=== PATIENT | male | born 1955 | race Caucasian/White ===

== ENCOUNTER 2023-11-17 06:28 | Outpatient (RCR) | payer MEDICARE, SELFPAY | END 2023-11-17 23:59 | disposition home or self-care (01) | LOC: RPT 06:28 | PROVIDERS: ATTENDING PHYSICIAN Physician Assistant Surgical; PRIMARYCARE PHYSICIAN Family Medicine | DX: Z47.1 Aftercare following joint replacement surgery (principal); Z96.641 Presence of right artificial hip joint; M89.8X9 Other specified disorders of bone, unspecified site; M54.51 Vertebrogenic low back pain; Z73.6 Limitation of activities due to disability | CPT/HCPCS: 97010; 97110; 97164 ==

== ENCOUNTER 2023-12-18 10:48 | Outpatient (RCR) | payer MEDICARE, SELFPAY | END 2023-12-18 23:59 | disposition home or self-care (01) | LOC: RPT 10:48 | PROVIDERS: ATTENDING PHYSICIAN Physician Assistant Surgical; PRIMARYCARE PHYSICIAN Family Medicine | DX: Z47.1 Aftercare following joint replacement surgery (principal); Z96.641 Presence of right artificial hip joint; M89.8X9 Other specified disorders of bone, unspecified site; M54.51 Vertebrogenic low back pain; Z73.6 Limitation of activities due to disability | CPT/HCPCS: 97010; 97110; 97140 ==

== ENCOUNTER → 2024-03-01 07:41 | Outpatient (REF) | payer MEDICARE, SELFPAY | LOC: PAVMRI 07:41 | PROVIDERS: ATTENDING PHYSICIAN Specialist; FAMILY PHYSICIAN Family Medicine; REFERRING PHYSICIAN Orthopaedic Surgery | DX: G95.9 Disease of spinal cord, unspecified (principal) | CPT/HCPCS: 72157; A9575 ==

== ENCOUNTER → 2024-04-02 12:33 | Outpatient (REF) | payer MEDICARE, SELFPAY ==
[2024-04-02 14:39] LABS: HDL Cholesterol 48 mg/dl; LDL Cholesterol, Calculated 54 mg/dl; Total Cholesterol 142 mg/dl (50-199); Triglyceride 202 mg/dl (10-149); Very Low Density Lipoprotein 40 mg/dl (0-30)
[2024-04-02 14:41] LABS: ALT (SGPT) 20 U/L (0-50); AST (SGOT) 28 U/L (17-59); Albumin 4.5 g/dl (3.5-5.0); Alkaline Phosphatase 105 U/L (38-126); Blood Urea Nitrogen 16 mg/dl (9-20); Calcium 9.8 mg/dl (8.4-10.2); Carbon Dioxide 22 mmol/L (22-30); Chloride 105 mmol/L (98-107); Glucose 102 mg/dl (70-99); HDL Cholesterol 49 mg/dl; LDL Cholesterol, Calculated 52 mg/dl; Potassium 4.4 mmol/L (3.5-5.1); Sodium 137 mmol/L (135-145); Total Bilirubin 0.7 mg/dl (0.2-1.3); Total Cholesterol 141 mg/dl (50-199); Total Protein 7.1 g/dl (6.3-8.2); Triglyceride 203 mg/dl (10-149); Very Low Density Lipoprotein 40 mg/dl (0-30); eGFR > 60.00
== END ==
LOC: RCS 12:33
PROVIDERS: ATTENDING PHYSICIAN Internal Medicine; FAMILY PHYSICIAN Family Medicine
DX: I25.10 Atherosclerotic heart disease of native coronary artery without angina pectoris (principal); I10 Essential (primary) hypertension; I77.810 Thoracic aortic ectasia; I25.5 Ischemic cardiomyopathy; E78.5 Hyperlipidemia, unspecified
CPT/HCPCS: 36415; 80053; 80061; 93306

== ENCOUNTER → 2024-04-24 10:16 | Outpatient (REF) | payer MEDICARE, SELFPAY | LOC: RAD 10:16 | PROVIDERS: ATTENDING PHYSICIAN Surgery Vascular Surgery; FAMILY PHYSICIAN Family Medicine; REFERRING PHYSICIAN Internal Medicine | DX: I71.40 Abdominal aortic aneurysm, without rupture, unspecified (principal) | CPT/HCPCS: 76770 ==

== ENCOUNTER → 2024-05-01 09:12 | Outpatient (REF) | payer MEDICARE, SELFPAY | LOC: HWRAD 09:12 | PROVIDERS: ATTENDING PHYSICIAN Surgery Vascular Surgery; FAMILY PHYSICIAN Family Medicine; REFERRING PHYSICIAN Physical Medicine & Rehabilitation | DX: I71.40 Abdominal aortic aneurysm, without rupture, unspecified (principal) | CPT/HCPCS: 75635; Q9967 ==

== ENCOUNTER 2024-06-17 07:13 | Inpatient (IN) | payer MEDICARE, SELFPAY ==
[2024-06-13 09:23] VITALS: BMI 31.8
[2024-06-13 10:05] LABS: % Basophils 1.1 % (0-2); % Eosinophils 4.1 % (0-6); % Immature Granulocytes 0.3 % (0-0.5); % Lymphocytes 14.7 % (20.5-51.1); % Monocytes 9.2 % (1.7-9.3); % Neutrophils 70.6 % (42.2-75.2); Absolute Basophils 0.1 10^3/uL (0-0.2); Absolute Eosinophils 0.3 10^3/uL (0-0.7); Absolute Lymphocytes 0.9 10^3/uL (1.2-3.4); Absolute Monocytes 0.6 10^3/uL (0.1-0.6); Absolute Neutrophils 4.4 10^3/uL (1.4-6.5); Hematocrit 43.9 % (39.0-52.0); Hemoglobin 15.1 g/dL (13.0-18.0); Mean Corp Hgb Conc. 34.4 g/dL (33.0-37.0); Mean Corpuscular Hgb 30.7 pg (27.0-31.0); Mean Corpuscular Volume 89.2 fL (80.0-94.0); Mean Platelet Volume 9.5 fL (7.4-10.4); Nucleated Red Blood Cells % 0 % (-); Platelet Count 213 10^3/uL (130-400); Red Blood Cell Count 4.92 10^6/uL (4.70-6.10); Red Cell Dist. Width 13.8 % (11.5-14.5); White Blood Cell Count 6.2 10^3/uL (4.8-10.8)
[2024-06-13 10:16] LABS: APTT 30.7 Sec (23.4-35.0); INR 0.93; PT 12.4 Sec (11.4-14.6)
[2024-06-13 10:26] LABS: Blood Urea Nitrogen 20 mg/dl (9-20); Calcium 9.8 mg/dl (8.4-10.2); Carbon Dioxide 26 mmol/L (22-30); Chloride 102 mmol/L (98-107); Estimated Creatinine Clearance 104 ml/min; Glucose 104 mg/dl (70-99); Potassium 4.4 mmol/L (3.5-5.1); Sodium 140 mmol/L (135-145); eGFR > 60.00
[2024-06-17] VITALS (15 sets, daily range): BP systolic 91–149; BP diastolic 65–84; BMI 31.7; BMI 31.1
[2024-06-17] MEDS: BACTROBAN NASAL 1 GRAM NASAL (08:24)
[2024-06-17] MEDS: PERIDEX 0.12% ORAL RINSE 15 ML PO (08:25)
--- NOTE | 2024-06-17 09:08 | W.SUR.PREOP ---
Pre-Operative Surgical Note
-
I have examined this patient prior to the performance of the scheduled procedure.
The patient's condition is unchanged from the time of the current History and
Physical and the patient is able to undergo the scheduled procedure.
[2024-06-17 11:27] LABS: B.E. - POC -2.4 mmol/L; Glucose - POC 140 mg/dl (70-99); HCO3 - POC 23 mmol/L (21-29); Hematocrit - POC 39 % PCV (42-52); Hemodilution- POC No; Hemoglobin Calculated - POC 13.2; Lactate - POC 1.18 mmol/L (0.36-0.75); PCO2 - POC 41 mmHg (35-45); PO2 - POC 94 mmHg (80-100); Potassium - POC 4.8 mmol/L (3.6-5.0); Sodium - POC 140 mmol/L (135-145); pH - POC 7.36 (7.35-7.45)
[2024-06-17 13:33] LABS: B.E. - POC -3.9 mmol/L; Glucose - POC 167 mg/dl (70-99); HCO3 - POC 22 mmol/L (21-28); Hematocrit - POC 37 % PCV (42-52); Hemodilution- POC Yes; Hemoglobin Calculated - POC 12.7; Ionized Calcium - POC 1.15 mmol/L (1.15-1.33); Lactate - POC 1.42 mmol/L (0.36-0.75); O2 Saturation %Calculated-POC 98.2 % (94-98); PCO2 - POC 40 mmHg (35-48); PO2 - POC 115 mmHg (83-108); Potassium - POC 4.6 mmol/L (3.5-5.1); Sodium - POC 139 mmol/L (136-145); pH - POC 7.34 (7.35-7.45)
[2024-06-17 14:33] LABS: ACT-LR - POC 221 Seconds (116-155)
[2024-06-17 14:46] LABS: B.E. - POC -3.9 mmol/L; Glucose - POC 166 mg/dl (70-99); HCO3 - POC 21 mmol/L (21-28); Hematocrit - POC 34 % PCV (42-52); Hemodilution- POC Yes; Hemoglobin Calculated - POC 11.6; Ionized Calcium - POC 1.09 mmol/L (1.15-1.33); Lactate - POC 1.95 mmol/L (0.36-0.75); PCO2 - POC 39 mmHg (35-48); PO2 - POC 140 mmHg (83-108); Potassium - POC 4.3 mmol/L (3.5-5.1); Sodium - POC 141 mmol/L (136-145); pH - POC 7.35 (7.35-7.45)
--- NOTE | 2024-06-17 15:23 | W.SUR.POST ---
Surgical Immediate Post Op
Note
Pre Op Diagnosis: AAA
Post Op Diagnosis: AAA
Procedure Performed: [id number] bypass with excision of endograft
Primary Surgeon: Zeferino
Assist: Checo CASTILLO
Anesthesia: General
Estimated Blood Loss: 800cc
Fluids: See anesthesia flow sheet
Drains/Shunts: none
Specimens/Cultures: Aortic endograft
Doppler/Duplex/Angio (Y/N): Y
Complications: none
Operative Findings: palp PT BL
[2024-06-17] MEDS: NEO-SYNEPHRINE 250 IV (16:35)
[2024-06-17 16:55] LABS: Hematocrit 37.7 % (39.0-52.0); Hemoglobin 13.2 g/dL (13.0-18.0); Mean Corpuscular Hgb 29.9 pg (27.0-31.0); Mean Corpuscular Volume 85.5 fL (80.0-94.0); Mean Platelet Volume 9.2 fL (7.4-10.4); Platelet Count 175 10^3/uL (130-400); Red Blood Cell Count 4.41 10^6/uL (4.70-6.10); Red Cell Dist. Width 13.6 % (11.5-14.5); White Blood Cell Count 12.2 10^3/uL (4.8-10.8)
[2024-06-17] MEDS: DILAUDID PCA 30 IV (16:57)
[2024-06-17 17:06] LABS: INR 1.13; PT 14.3 Sec (11.4-14.6)
[2024-06-17 17:07] LABS: APTT 27.5 Sec (23.4-35.0)
[2024-06-17 17:15] LABS: ALT (SGPT) 20 U/L (0-50); AST (SGOT) 24 U/L (17-59); Albumin 3.3 g/dl (3.5-5.0); Alkaline Phosphatase 76 U/L (38-126); Blood Urea Nitrogen 18 mg/dl (9-20); Calcium 7.8 mg/dl (8.4-10.2); Carbon Dioxide 19 mmol/L (22-30); Chloride 109 mmol/L (98-107); Direct Bilirubin 0.2 mg/dl (0.0-0.4); Estimated Creatinine Clearance 94 ml/min; Glucose 147 mg/dl (70-99); Potassium 4.4 mmol/L (3.5-5.1); Sodium 141 mmol/L (135-145); Total Bilirubin 0.6 mg/dl (0.2-1.3); Total Protein 5.6 g/dl (6.3-8.2); eGFR > 60.00
[2024-06-17 17:18] LABS: Troponin I < 0.012 ng/ml
--- NOTE | 2024-06-17 17:32 | CON.INTV ---
Consultation
Consultation Request
Date/Time Consultation Requested: 06/17
Date/Time Consultation Performed: 06/17
Reason for Consultation: Critical care
Medical History
-
History of Present Illness:
History obtained from the chart. Patient is a 68-year-old male with complex medical history including abdominal aortic aneurysm without rupture. He had recent imaging in April which confirmed right limb of his aortic endograft was occluded.
This has progressed. Patient also with ongoing claudication over the past 10 months. Patient underwent aorto-biiliac bypass with excision of endograft 06/17/2024. 800 cc blood loss noted. Palpable PT bilaterally postprocedure. We are asked to
help from critical care standpoint. Patient is awake and alert. Moving all extremities, answering questions.
.
PMH: Hypertension, hyperlipidemia, history of CHF, coronary disease, peripheral arterial disease, total hip replacement, coronary stent 2000, 2005. Status post EVAR October 2021, bilateral iliofemoral thrombectomy, right total hip replacement, lumbar
surgery
Past Medical History
Past Medical History: None (See above)
Past Surgical History: None (See above)
Social History
Tobacco: Former Smoker ([id number], quit 2015)
Alcohol: Occasional
Drug: None
Personal:
Living: With Family
Employment: Employed (Owns a restaurant)
Family History
Family History: Other (Family history of sleep apnea, heart disease, diabetes. 1 son healthy.)
Allergies / Home Medications
Allergies
Allergy/AdvReac Type Severity Reaction Status Date / Time
No Known Allergies Allergy Verified 06/17/24 09:22
Home Medications
�Medication �Instructions �Recorded �Confirmed �Last Taken �Type
aspirin 81 mg tablet,delayed 81 mg PO DAILY Blood clot 10/04/21 06/17/24 06/17/24 06:30 History
release prevention/tx
metoprolol succinate 50 mg 50 mg PO DAILY Blood pressure 11/12/21 06/17/24 06/17/24 06:30 History
tablet,extended release 24 hr
amlodipine 10 mg tablet 10 mg PO DAILY 06/11/24 06/17/24 06/17/24 06:30 History
escitalopram oxalate 20 mg tablet 20 mg PO DAILY 06/11/24 06/17/24 06/16/24 09:00 History
oxycodone-acetaminophen 7.5 mg-325 1 tab PO Q6H PRN pain 06/11/24 06/17/24 06/17/24 06:30 History
mg tablet
rosuvastatin 40 mg tablet 40 mg PO DAILY 06/17/24 06/17/24 06/16/24 09:00 History
Review of Systems
-
Unable to Obtain full review of systems at this time due to: Acuity
All other systems: Negative unless noted
Vitals / Labs / Diagnostic Testing
Vital Signs
Temp Pulse Resp BP Pulse Ox
97.9 F 61 13 101/72 98
06/17/24 17:20 06/17/24 17:15 06/17/24 17:15 06/17/24 17:15 06/17/24 17:20
Lab Data
06/17/24 16:36
06/17/24 16:37
Laboratory Results
06/17/24
16:37
PT 14.3
INR 1.13
APTT 27.5
Diagnostic Testing:
Physical Exam
-
HEENT: Normocephalic, Anicteric and Other ( Right IJ, Upper extremity)
Cardiovascular: S1/S2, Regular Rhythm, Murmur (n), Rub (n), Peripheral Edema (n) and Other ( PT dopplerable pulses bilateral lower extremity per report)
Respiratory: Wheeze (n), Rales (n), Rhonchi (n) and Non-Labored Respirations
GI: Soft, Non Distended, Non Tender and Other ( abdominal incision with dressing)
Neurology: Awake, Alert and No Motor Deficits ( was all extremities, follows commands)
Skin: Good Color
General: Comfortable
Assessment
-
68-year-old male with history of EVAR October 2021, now with progressive claudication, increased symptoms over the last 10 months, found to have occluded bypass limb secondary to persistent mural thrombus. He is now status post an aortobiiliac bypass
with excision of endograft 06/17/24
S/p Aortic biiliac bypass, excision of endograft
06/17/24
History of AAA s/p EVAR, Cook Zenith endoprosthesis 11/01/21
with mural thrombus, occlusion, progressive claudication for past year
800 cc blood loss intraoperative
Postoperative hemoglobin 13.2
Conditions present prior to admission
CAD
CHF
Former smoker, >40 years, quit 2015
HTN
HLD
Varicose veins
Plan/recommendations
Presently, patient appears to be comfortable
Pulse is dopplerable bilaterally PT
Extremities adequate
Abdominal incision intact, abdomen soft
Cranial nerves intact, moves all extremities
EKG, chest x-ray stable
800 cc blood loss noted
Moving forward
Patient appears to be comfortable, continue with supportive care per vascular surgery
Follow hemoglobin, urine output
Pain control, TOP LIFT SCOURER
Pulse check per vascular protocol
Reviewed with critical care nursing
We will follow
TCCT 31 min
[2024-06-17] MEDS: LOPRESSOR IV ×2 (18:02→23:48)
[2024-06-17] MEDS: OFIRMEV 100 IV ×2 (18:10→23:11)
[2024-06-17] MEDS: NSS 1000 IV ×2 (18:11→23:09)
--- NOTE | 2024-06-17 18:36 | PTCARENOTE ---
Addendum entered by Olga Acosta RN 06/17/24 19:03:
able to locate pedal pulses bilaterally with doppler. feet warmer. report to oncoming RN
Original Note:
patient received from PACU@1358. assessments per work list. jono titration to keep systolic >100. unable to locate pedal pulses. post tib's by Doppler. per RUBY ON RAILS DEVELOPER this assessment is unchanged from the OR. welt butter hand at bedside. orientedX3,
abdominal pain, utilizing MACHINING ASSOCIATE, reenforced usage. Pope draining clear yellow urine. call nolasco in hand. family at bedside. updated
[2024-06-17 19:12] LABS: Hepatitis B Surface Antigen Negative (Negative)
[2024-06-17 19:29] LABS: Hepatitis B Surface Antibody Negative; Hepatitis C Antibody Negative (Negative)
--- NOTE | 2024-06-17 19:40 | PTCARENOTE ---
Resumed care of pt this evening. Received pt on jono gtt infusing at 30 mcg/min via right IJ cordis central line. Also received pt on Dilaudid MATERIAL DISPOSITION INSPECTOR gtt infusing via left peripheral IV site. Pt is drowsy but arousable to verbal and tactile stimuli.
Neurovascular checks performed w/ dayshift RN. B/L DP and PT pulses present via doppler, previously DP's were absent. Pt denies any numbness, paresthesia, and/or pain to B/L lower extremities. Pt's feet are pale, warm, with quick capillary refill.
Pt is A&Ox3, able to move all 4 extremities, and can make needs known. Pt is NSR/SB on tele monitor and has a regular apical pulse. Pt has trace edema on B/L lower extremities. Simple mask removed and 2L of O2 via nasal cannula placed by this RN. Pt
satting at 95% pulse ox and on auscultation pt's lungs sound diminished. NPO status maintained. Pt's abdomen is round, tender, tender to palp, and has +BS. Pope cath in place draining yellow colored urine. Midline abdominal surgical aquacell
dressing is C/D/I.
[2024-06-18] VITALS (19 sets, daily range): BP systolic 90–143; BP diastolic 66–89; BMI 31.7
--- NOTE | 2024-06-18 | PTCARENOTE ---
Upon reassessment pt is resting comfortably and neurovascular checks are unchanged.
--- NOTE | 2024-06-18 03:00 | PTCARENOTE ---
Rohan gtt tapered to 20 mcg/min per order. Neuro vascular checks unchanged.
[2024-06-18 04:35] LABS: Hematocrit 34.7 % (39.0-52.0); Hemoglobin 12.1 g/dL (13.0-18.0); Mean Corp Hgb Conc. 34.9 g/dL (33.0-37.0); Mean Corpuscular Hgb 29.9 pg (27.0-31.0); Mean Corpuscular Volume 85.7 fL (80.0-94.0); Mean Platelet Volume 9.6 fL (7.4-10.4); Platelet Count 187 10^3/uL (130-400); Red Blood Cell Count 4.05 10^6/uL (4.70-6.10); White Blood Cell Count 10.8 10^3/uL (4.8-10.8)
[2024-06-18 04:42] LABS: INR 1.12; PT 14.2 Sec (11.4-14.6)
[2024-06-18 04:43] LABS: APTT 30.4 Sec (23.4-35.0)
[2024-06-18 05:01] LABS: Blood Urea Nitrogen 23 mg/dl (9-20); Calcium 7.9 mg/dl (8.4-10.2); Carbon Dioxide 19 mmol/L (22-30); Chloride 109 mmol/L (98-107); Estimated Creatinine Clearance 93 ml/min; Glucose 132 mg/dl (70-99); Potassium 5.4 mmol/L (3.5-5.1); Sodium 142 mmol/L (135-145); eGFR > 60.00
[2024-06-18] MEDS: NSS 1000 IV ×3 (05:54→20:16)
[2024-06-18] MEDS: OFIRMEV 100 IV ×3 (06:02→17:38)
[2024-06-18] MEDS: LOPRESSOR IV (06:03)
--- NOTE | 2024-06-18 06:45 | PTCARENOTE ---
Rohan gtt turned off per protocol.
--- NOTE | 2024-06-18 07:30 | W.PN.INTV ---
Today's Communication / Plan
Recommendations
Wean off pressors
Pain control
Follow electrolytes
Continue IV fluids
Assessment
-
68-year-old male with history of EVAR October 2021, now with progressive claudication, increased symptoms over the last 10 months, found to have occluded bypass limb secondary to persistent mural thrombus. He is now status post an aortobiiliac bypass
with excision of endograft 06/17/24
S/p Aortic biiliac bypass, excision of endograft
06/17/24
History of AAA s/p EVAR, Cook Zenith endoprosthesis 11/01/21
with mural thrombus, occlusion, progressive claudication for past year
800 cc blood loss intraoperative
Postoperative hemoglobin 13.2
Conditions present prior to admission
CAD
CHF
Former smoker, >40 years, quit 2015
HTN
HLD
Varicose veins
Plan/recommendations
At this time, patient appears to be comfortable but remains critically ill. Required low-dose Rohan-Synephrine overnight to maintain adequate maps
Presently, systolic pressure 90s to 120s
Urine output data, creatinine stable at 1.1
Troponin negative
EKG unremarkable
Hemoglobin stable
Pulses intact
Moving forward
Continue with vascular checks
Remains n.p.o., NG tube in place. Possible discontinuation later today
Pulse intact
Abdominal incision intact, abdomen soft
Cranial nerves intact, moves all extremities
pain control, COMPUTER SYSTEMS DESIGN ANALYST
Hemoglobin stable
Pressors being weaned off. A-line to be discontinued
Troponin negative
IV fluids continue. Follow-up urine output
Follow electrolytes
Continue DVT prophylaxis: Subcutaneous heparin
GI prophylaxis: Per vascular protocol, remains on Protonix
Reviewed with critical care nursing, respiratory care, pharmacy
TCCT 31 min
Subjective Dataa
Subjective Data
Date of Service:
Date of Service: June 18, 2024
Subjective:
Patient primary complaint is abdominal discomfort. Using COMPUTER SYSTEMS DESIGN ANALYST with some improvement. Denies nausea. NG tube in place. Denies shortness of breath, chest pain
Objective Data
Data Reviewed
Vital Signs / I&O / Oxygen:
Vital Signs
Temp Pulse Resp BP Pulse Ox
98.1 F 59 14 130/77 94
06/18/24 04:36 06/18/24 06:03 06/18/24 06:28 06/18/24 06:00 06/18/24 06:28
Intake and Output
06/17/24 06/18/24 06/19/24
06:59 06:59 06:59
Intake Total 2275 / 2275
Output Total 958 / 958
Balance 1317 / 1317
SaO2 94
Nasal Cannula flow liters per 2
minute
Physical Exam
General: Comfortable and Other (Upper extremity A-line)
HEENT: Normocephalic and Anicteric
Cardiovascular: S1-S2, Regular Rhythm, Murmur (n), Rub (n), Peripheral Edema (n) and Other (Distal pulses intact, feet warm)
Respiratory: Wheeze (n), Crackles (n) and Rhonchi (n)
GI: Soft, Tender and Other (Dressing in place)
Neurology: Awake, Alert and No Motor Deficits
Skin: Good Color, Cyanosis (n), Jaundice (n) and Rash (n)
Labs/Micro/Reports
Lab Data
06/18/24 04:12
06/18/24 04:12
Laboratory Results
06/17/24 06/18/24
16:37 04:12
PT 14.3 14.2
INR 1.13 1.12
APTT 27.5 30.4
--- NOTE | 2024-06-18 07:39 | W.PN.VS ---
Addendum entered and electronically signed by Francisco Mcgarry MD 06/18/24 13:02:
Seen and examined earlier this a.m. with WILLIE Kessler. This is a late entry. Patient noted some henry-incisional discomfort but otherwise no significant complaints. [place] somewhat hungry. No nausea.
Afebrile. Systolic blood pressure in the 100s to 130s. Heart rates 50s to 60s. Urine output overnight with 30 to 45 cc/h. NG tube scant. On exam he is awake and alert. Head is normocephalic and atraumatic. Eyes are anicteric. Neck is soft no
jugular venous distention. Breathing is unlabored. Abdomen is soft, nondistended, appropriate incisional tenderness but otherwise no significant tenderness. Dressing is clean dry and intact. Feet are both warm and well-perfused with 2+ palpable
PT pulses bilaterally. Plan/as discussed and noted below.
Original Note:
Today's Communication / Plan
-
Patient seen and examined at bedside with Dr. Francisco Mcgarry, below plan reviewed with attending.
Assessment/Plan
-
Assessment: 68 year old male POD#1 [id number] bypass with excision of endograft
Plan:
OOB to chair
Given patient reports sub optimal pain control will increase POLLUTION CONTROL ENGINEER
Will continue to follow NGT outputs, if remains minimal possibly dc today
Dc arterial line
Urine output marginal over night will provide 500ml bolus
Repeat BMP given hyperkalemia
Continue ICU monitoring today
Subjective Data
-
Date of Service: June 18, 2024
Patient seen and examined at bedside, reports ABD incisional pain helped by POLLUTION CONTROL ENGINEER but does not feel it is providing complete pain management. Denies nausea, vomiting, fever, and chills. Reports eagerness for PO intake.
Objective Data
-
Vital Signs
Temp Pulse Resp BP Pulse Ox
98.1 F 59 14 130/77 94
06/18/24 04:36 06/18/24 06:03 06/18/24 06:28 06/18/24 06:00 06/18/24 06:28
Intake and Output
06/17/24 06/18/24 06/19/24
06:59 06:59 06:59
Intake Total 2275 / 2275
Output Total 958 / 958
Balance 1317 / 1317
Intake:
IV fluids (Total) 1974
Nss 1,000 ml @ 150 mls/hr IV . 1874
[id number] CLEMENTE Rx#:[id number]
normal saline 100 / 100
IV piggybacks 300 / 300
Output:
Urine, Pope 958 / 958
Lab Results
06/18/24 04:12
06/18/24 04:12
Calcium 7.9 mg/dl (8.4-10.2) L 06/18/24 04:12
Total Bilirubin 0.6 mg/dl (0.2-1.3) 06/17/24 16:37
Direct Bilirubin 0.2 mg/dl (0.0-0.4) 06/17/24 16:37
AST 24 U/L (17-59) 06/17/24 16:37
ALT 20 U/L (0-50) 06/17/24 16:37
Alkaline Phosphatase 76 U/L (38-126) 06/17/24 16:37
Total Protein 5.6 g/dl (6.3-8.2) L 06/17/24 16:37
Albumin 3.3 g/dl (3.5-5.0) L 06/17/24 16:37
Physical Exam
-
AAOx3, NAD resting in bed comfortably
No tachycardia
No dyspnea
ABD incision dressing CDI, ABD soft, tender at midline incision
BL feet warm, BL PT +2 palpable
Pope draining clear yellow urine
--- NOTE | 2024-06-18 08:00 | PTCARENOTE ---
Addendum entered by Amy Macedo RN 06/18/24 18:38:
AM labs with Potassium noted 5.4, vascular aware, repeat ordered.
Original Note:
See assessment charted. Received, Alert, Comfortable on SANDING LINE OPERATOR at rest. SANDING LINE OPERATOR site change to Right IJ cordis from peripheral site. Off pressors,VSS. BLE neurovascular checks hourly in progress.
[2024-06-18] MEDS: NSS 500 IV (08:29)
[2024-06-18] MEDS: NSS (PRESERVATIVE FREE) 10 ML IV (08:38)
[2024-06-18] MEDS: PROTONIX IV 40 MG IV (08:39)
[2024-06-18] MEDS: HEPARIN 5000 UNITS SC ×2 (08:39→15:34)
[2024-06-18 10:56] LABS: Blood Urea Nitrogen 25 mg/dl (9-20); Calcium 7.8 mg/dl (8.4-10.2); Carbon Dioxide 22 mmol/L (22-30); Chloride 109 mmol/L (98-107); Estimated Creatinine Clearance 94 ml/min; Glucose 125 mg/dl (70-99); Potassium 4.7 mmol/L (3.5-5.1); Sodium 140 mmol/L (135-145); eGFR > 60.00
[2024-06-18 11:15] LABS: HIV Combo Negative (Negative)
--- NOTE | 2024-06-18 12:00 | PTCARENOTE ---
Repeat BMP performed, K 4.7, Maranda Monique updated. No change in physical assessment.
[2024-06-18] MEDS: LOPRESSOR 2.5 MG IV ×2 (13:05→17:39)
--- NOTE | 2024-06-18 15:42 | OR.RPT ---
Operative Report
Operative Report
PROCEDURE DATE: 06/17/2024
Preoperative diagnosis:
1. Abdominal aortic aneurysm status post endovascular repair of infrarenal abdominal aortic aneurysm with Cook Zenith bifurcated endograft.
2. 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
3. 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
Postoperative diagnosis: Same
Procedure:
1. Aorto to bi-iliac artery bypass (left common iliac artery and right external iliac artery) with Hemashield dacron 22 mm x 11 mm bifurcated graft.
2. Excision of aortic endograft majority of main body and portions of iliac limbs.
Surgeon: Zeferino
Motor Vehicle Field Representative: Destiney Kessler, CAMPAIGN SPECIALIST, required for all aspects of procedure including assistance with traction/countertraction, following of suture line, assistance with closure.
Complications: None
Anesthesia: General
Indications for procedure:
Prior abdominal aortic aneurysm repair with Cook Zenith bifurcated modular endoprosthesis. Had prior occluded left iliac limb and had thrombus in the right iliac limb. Underwent successful thrombectomies. Repeat imaging in the intervals had
demonstrated widely patent graft with no evidence of residual thrombus. Patient had subsequently presented for surveillance ultrasound imaging. This had demonstrated occlusion of the right iliac limb. When I discussed with the patient he noted
that he had had acute onset of right lower extremity numbness and weakness and pain with ambulation about 9 months prior. Had been hospitalized but never had the graft worked up. (Was admitted to a different institution). I immediately obtained
CT scan imaging and saw the patient and discussed that his symptoms of claudication were likely secondary to acute thrombosis of his graft 9 months prior. Therefore discussed options extensively of revascularization. Patient understood all wished
to proceed with aortobiiliac grafting. Risk/benefits/alternatives fully discussed. Patient understood all wished to proceed.
Description of procedure:
Patient was identified brought to the operating room placed on the table in supine position. After the adequate administration of anesthesia he was prepped and draped in the standard surgical fashion. A standard preoperative timeout was undertaken
and everybody was in agreement the plan. A standard midline longitudinal laparotomy incision was made which was carried through the skin and subcutaneous tissue. He had actually a moderate depth of subcutaneous tissue. We then carried this down
to the fascial layer and divided the fascia with electrocautery carefully. This was divided along the linea alba. Next I gently grasped the peritoneum and incised it. I carefully swept my finger around ensuring no adhesions. I then opened the
entirety of the laparotomy incision and the peritoneal layer. An abdominal Jane retractor was temporarily placed and the small bowel swept to the right lower quadrant. Of note the patient had a deep domain. With the small bowel manually swept
to the right side, the duodenum was sharply incised off the retroperitoneum allowing better mobilization and retraction of the small bowel. At this point, a self-retaining Omni retractor system was put into place. Next, the transverse colon was
grasped and raised cephalad and retracted. I then dissected on the anterior surface of the abdominal aorta carefully opening the retroperitoneum overlying using electrocautery and sharp dissection. Any lymphatic type vessels were clipped or
ligated. I continued this dissection up to the level of the renal vein. The renal vein was identified. There was a superior branch (likely in a sending lumbar or more likely adrenal branch) that was quite large in the middle of the renal vein
making dissection slightly challenging. I therefore then carefully dissected this circumferentially and ligated it with heavy silk ties on either side endoclips and then divided between the ties and clips. Then I was able to circumferentially
dissect the renal vein and passed a vessel loop around it. As such I was able to gently retract the renal vein cephalad. I then continued my dissection up the aortic neck which you could tell was more normal in size which was essentially
immediately posterior to the renal vein but did extend slightly distally beyond there. I was able to dissect carefully up to the right renal artery and was able to palpate it. Both renal arteries were essentially the same level based on CT scan
imaging. Therefore I was able to clear a suitable clamp zone at the immediate infrarenal portion by dissecting down to the level of the spine on either side of the aorta. Once I had a suitable clamp zone, I positioned an aortic clamp but did not
tighten it. I now dissected down the aorta to the bifurcation. Tissues were somewhat stuck likely due to chronic inflammation secondary to the endograft. The left common iliac artery was dissected proximally but it was very stuck on either side
and therefore circumferential dissection I felt was a little bit dangerous. I dissected a channel on either side such that I could clamp. This was stent grafted and my plan was to leave the portion of the iliac stent within the vessel and so to
that.
Now I turned my attention to the right iliac system. I initially hoped to dissect the very distal external iliac artery in the pelvis. However it was very deep and based on his habitus would have been a little bit more challenging. Therefore, I
dissected along the common iliac artery to the bifurcation. (Right common iliac artery). Careful dissection was undertaken and the ureter was clearly identified. I carefully circumferentially dissected the ureter and passed a vessel loop around
it so as to protect it. Minimal mobilization of it was performed. I then identified the iliac bifurcation and the proximal external iliac artery. I had to dissect beyond the origin as there was heavy plaque at the origin. This dissection proved
somewhat challenging as it was somewhat deep and retraction with his bowels and habitus was slightly challenging. However I was finally able to dissect circumferentially and passed a vessel loop around it.
Now had proximal and distal control on the aorta and iliac vessels. I gave the patient an appropriate dose of heparin now. I then tightened my double vessel loop on the external iliac artery on the right side and placed a hypogastric clamp on the
left common iliac artery. I then tightened my aortic clamp to crossclamped the immediately infrarenal aorta. This obliterated the pulsation. I now used an 11 blade to make an aortotomy. I extended with a Ron scissor proximally distally.
Proximally I teed it off. There is significant luminal thrombus and I scooped out all this thrombus. Thereby exposing the endograft. At the proximal aortic neck where it became more normal, I used a scissor to cut the neck just inferior to the
stent. I then cut out a circumference of the graft there. Within the graft the right iliac limb was clearly thrombosed with chronic thrombus. There was also mural thrombus lining the graft as noted on CT scan. I scooped out all this mural
thrombus. There is a small amount extending up to my aortic clamp which I removed and then flushed the aorta quickly and then reclamped. I carefully removed all thrombus that I could and irrigated vigorously there. I then cut out the right and
left proximal iliac limbs with the assistance of a barbed wire machine operator as well. The aortic graft and proximal iliac limbs were then sent off. Thrombus was also sent off. Distally I teed the arteriotomy off at the proximal iliac on the left iliac. I cut
the graft essentially flush with the iliac ho-chunk tissue. I now brought onto the field a Hemashield dacron 22 mm x 11 mm bifurcated graft. I then sewed this to the proximal infrarenal aorta, in an end-to-end fashion (inclusion technique). I
incorporated both the aortic ho-chunk tissue and the small remnant of proximal endograft into the suture line. This was done with a running 3-0 Prolene suture. I completed and tied down my suture line. Next I clamped both iliac limbs and then
released my aortic clamp. I noted hemostasis along the suture line.
Now I turned my attention to the left iliac anastomosis. I flushed out the graft limbs and then we clamped them proximally. I removed any redundancy and trimmed the left limb of the iliac graft. I then sewed an end-to-end anastomosis between the
left iliac limb of the graft and the ho-chunk iliac tissue incorporating the endograft (iliac endograft limb) with a running 3-0 Prolene suture. This proved to be very challenging due to the somewhat scarred nature of the tissues here. However I was
able to successfully do so. Prior to completing and tying down my suture line I backbled the ho-chunk iliac system which backbled well. I also flushed out the graft limb. I then completed and tied down my suture line. Next after consulting with my
anesthesiology colleagues in order to prepare to avoid hypotension, I released the hypogastric clamp and then the graft limb clamp. Hemostasis was noted. Next, I turned my attention to the right iliac anastomosis. As noted this was to be
performed to the external iliac artery. Due to the ureter on the right side essentially directly overlying the common iliac artery and not a significant amount of room posterior to it, I felt tunneling it under the ureter would be potentially
compressive. Therefore I related anteriorly as it laid better. I then brought it to the external iliac artery region that I had dissected out prior. Though there was a thrombosed right iliac limb, I wish to do an end-to-end anastomosis to the
external iliac artery such that there would be no pressurized backbleeding if the thrombus was to dislodge. In addition due to the his habitus and depth, end-to-side would have been very challenging. I therefore then ligated the proximal external
iliac artery with heavy silk ties. I then transected the external iliac artery. I had to dissected slightly further down in place a hockey-stick like clamp such that the external iliac artery faced upward. I trimmed the edges such that I had nice
clean sewing ring. I then sewed an end-to-end anastomosis, slightly spatulating the external iliac artery so that it would size match the graft using a running 5-0 Prolene suture. Prior to completing and tying down my suture line I backbled the
ho-chunk external iliac artery which backbled well. I then flushed out the graft limb. I then completed and tied down my suture line. I then discussed again with my anesthesiology colleagues and released my clamps. Excellent pulsatile flow was
noted on this side as well. Now had excellent pulsatile flow in both iliac arteries. Doppler confirmed excellent Doppler signals. At this point I was very satisfied. Hemostasis was noted in the right iliac anastomosis. No to the anastomosis was
at least a few centimeters distal to the ureter crossing point.
Now turned my attention back to the proximal aortic anastomosis confirming continued hemostasis. Now, I confirmed hemostasis throughout the field. I gave protamine to reverse the heparin. I irrigated. I then closed or reapproximated the aneurysm
tissue over the graft using running 3-0 Vicryl suture as best we could. Finally we restored the bowel to its normal position, restored the omentum to its normal position. I checked the NG tube positioning and confirmed good positioning. The
abdominal fascial layer was then closed in the normal fashion after all sponge/needle/instrument counts were noted to be correct. This was done with a running #1 looped PDS suture. Once this was completed, a deep dermal layer was closed with
running 3-0 Vicryl. Skin clips were applied. Dressings were applied. The patient tolerated the procedure well. Upon completion he had 2+ palpable PT pulses bilaterally.
--- NOTE | 2024-06-18 16:00 | PTCARENOTE ---
Patient noted with low UO, 35cc/hr over the last 2 hours. Maranda Monique notified. No new orders at this time, continue current management.
--- NOTE | 2024-06-18 16:00 | CM ---
Addendum entered by Adela Higgins 06/23/24 10:02:
CM received message from stating pt is medically stable for discharge. CM reviewed chart and spoke with pt. Reviewed PT eval/recs and anticipated dc plan/options. Pt declining home care at this time. Family transporting home. IMM presented,
explained and signed by pt @ approx [phone]- placed on chart. Pt is clear to dc from a CM/SW standpoint.
Original Note:
Patient seen at bedside in ICU. Patient states that he lives with his sister and nephew in a split level home. Patient PCP is Dr. Bell, [facility] pharmacy per patient. Patient with no concerns regarding bill paying. Patient has a part
time job that he works when called. Patient has no DME and patient stated that he has had [facility] and gone to [facility] in the past. Patient plan is for discharge home pending medical treatment plan. CM will continue to follow for discharge planning needs.
Plan; home with VN vs home with no needs
--- NOTE | 2024-06-18 18:56 | PTCARENOTE ---
patient c/o throat pain. HEALTH CENTER ASSISTANT notified. New orders given.
--- NOTE | 2024-06-18 20:00 | PTCARENOTE ---
Resumed care of pt this evening. Pt remains on dilaudid ZIG ZAG SPRING MACHINE OPERATOR. Pt is A&Ox3, can make needs known, and can move all 4 extremities. Pt is NSR on tele montior and has trace GA. Neurovascular checks unchanged. Pt on 2L of O2 satting at 94% pulse ox. On
auscultation pt lungs sound diminished TO. Pts abdomen is round, obese, and tender to palpation. NG tube connected to continuous suctioning and pulling green GI drainage. Pope in place draining yellow colored urine. Midline abdominal surgical
aquacell dressing is C/D/I.
[2024-06-18] MEDS: ANESTHETIC LOZENGE 1 LOZENGE PO (20:13)
--- NOTE | 2024-06-18 21:00 | PTCARENOTE ---
Upon reassessment pt's neurovascular checks unchanged. Pt c/o sore throat, PRN lonzenge administered by this RN.
[2024-06-19] VITALS (26 sets, daily range): BP systolic 132–176; BP diastolic 78–96; PULSE 78; O2SAT 93; BMI 31.4
[2024-06-19] MEDS: OFIRMEV 100 IV ×4 (00:25→21:03)
[2024-06-19] MEDS: LOPRESSOR 2.5 MG IV ×2 (00:25→05:00)
[2024-06-19] MEDS: HEPARIN 5000 UNITS SC ×4 (00:26→23:51)
[2024-06-19] MEDS: NSS 1000 IV ×3 (02:46→15:30)
--- NOTE | 2024-06-19 03:30 | PTCARENOTE ---
Pt c/o abdominal discomfort. Pt reminded to use dilaudid CUTTING AND PRINTING MACHINE OPERATOR as needed.
[2024-06-19] MEDS: ANESTHETIC LOZENGE 1 LOZENGE PO (05:02)
[2024-06-19 05:22] LABS: Hematocrit 31.3 % (39.0-52.0); Hemoglobin 10.9 g/dL (13.0-18.0); Mean Corp Hgb Conc. 34.8 g/dL (33.0-37.0); Mean Corpuscular Hgb 31.2 pg (27.0-31.0); Mean Corpuscular Volume 89.7 fL (80.0-94.0); Mean Platelet Volume 9.5 fL (7.4-10.4); Platelet Count 135 10^3/uL (130-400); Red Blood Cell Count 3.49 10^6/uL (4.70-6.10)
[2024-06-19 05:36] LABS: Blood Urea Nitrogen 20 mg/dl (9-20); Calcium 8.3 mg/dl (8.4-10.2); Carbon Dioxide 23 mmol/L (22-30); Chloride 109 mmol/L (98-107); Estimated Creatinine Clearance 114 ml/min; Glucose 103 mg/dl (70-99); Magnesium 2.2 mg/dl (1.6-2.3); Sodium 142 mmol/L (135-145); eGFR > 60.00
--- NOTE | 2024-06-19 06:30 | PTCARENOTE ---
Addendum entered by Morgan Cooper RN 06/19/24 07:54:
800mL measurement is over a 12 hour period.
Original Note:
800mL of green GI contents measured in NG suction canister.
--- NOTE | 2024-06-19 07:44 | W.PN.VS ---
Addendum entered and electronically signed by Francisco Mcgarry MD 06/19/24 11:48:
Seen and examined with ROSETTA Kessler. Agree with findings as noted below. This is a late entry. Seen earlier this a.m. Patient noted slight abdominal discomfort this a.m. Vital signs and Is/Os fully reviewed.
NAD, Abd soft, ND. Mild tender (mainly henry-incisional). Non tympanitic. Feet warm, 2+ palp PT pulses b/l. NG bilious ~800cc this AM.
Plan/ As discussed and noted below. Good graft function. Possible early ileus. Cont NPO/NGT/IVF/jones. Replace NG output 1:1. Cont ICU monitoring.
Original Note:
Today's Communication / Plan
-
Patient seen and evaluated bedside with Dr. Francisco Mcgarry, below plan reviewed with attending.
Assessment/Plan
-
Assessment: 68 year old male POD#2 Blbac-bc-ackez bypass with excision of endograft
Plan:
OOB to chair
Suspect ileus continue NG tube and I and O
Given increased NG tube output will give 1 L fluid bolus
Continue ICU monitoring today
Will discontinue Cordis given adequate peripheral IV access
Physical therapy
Encourage incentive spirometry
Continue EXTENSION SERVICE AGENT
Subjective Data
-
Date of Service: June 19, 2024
Patient seen evaluated bedside, endorses increased abdominal discomfort but continues to be managed with EXTENSION SERVICE AGENT. Denies fever, chills, and vomiting. Reports chronic back pain that is exacerbated by current hospital bed.
Objective Data
-
Vital Signs
Temp Pulse Resp BP Pulse Ox
99.5 F 80 22 157/88 94
06/19/24 03:10 06/19/24 05:15 06/19/24 05:15 06/19/24 05:00 06/19/24 05:15
Intake and Output
06/18/24 06/19/24 06/20/24
06:59 06:59 06:59
Intake Total 2275 / 2425 4125 / 4225 100 / 100
Output Total 958 / 993 3380 / 3605 225 / 225
Balance 1317 / 1432 745 / 620 -125 / -125
Intake:
Oral fluids 360 / 360
IV fluids (Total) 1974 2975 / 3075 100 / 100
Nss 1,000 ml @ 100 mls/hr IV . 1874 2975 / 3075 100 / 100
Q10H CLEMENTE Rx#:[id number]
normal saline 100 / 100
IV piggybacks 300 / 300 700 / 700
Amount instilled into GI Tube (
Total)
Kingman Sump /
Output:
Gastrointestinal tube output ( 1325 / 1325
Total)
Kingman Sump 1325 / 1325
Urine, Jones 958 / 993 2054 / 2279 225 / 225
Lab Results
06/19/24 04:51
06/19/24 04:51
Calcium 8.3 mg/dl (8.4-10.2) L 06/19/24 04:51
Magnesium 2.2 mg/dl (1.6-2.3) 06/19/24 04:51
Total Bilirubin 0.6 mg/dl (0.2-1.3) 06/17/24 16:37
Direct Bilirubin 0.2 mg/dl (0.0-0.4) 06/17/24 16:37
AST 24 U/L (17-59) 06/17/24 16:37
ALT 20 U/L (0-50) 06/17/24 16:37
Alkaline Phosphatase 76 U/L (38-126) 06/17/24 16:37
Total Protein 5.6 g/dl (6.3-8.2) L 06/17/24 16:37
Albumin 3.3 g/dl (3.5-5.0) L 10/28/24 16:37
Physical Exam
-
AAOx3, NAD resting in bed comfortably
No tachycardia
No dyspnea
NG tube with reported increased output overnight to 800 mL for the shift, output bilious
ABD incision dressing CDI, ABD soft, tender at midline incision
BL feet warm, BL PT +2 palpable
Jones draining clear yellow urine
--- NOTE | 2024-06-19 07:52 | W.PN.INTV ---
Today's Communication / Plan
Recommendations
Remains n.p.o., continue NG tube output
Follow urine output, improved following IV fluid bolus
PT/OT, out of bed to chair
Continue CLIENT SERVICES REPRESENTATIVE
Follow hemoglobin
Increase Lopressor, follow blood pressure
Assessment
-
68-year-old male with history of EVAR October 2021, now with progressive claudication, increased symptoms over the last 10 months, found to have occluded bypass limb secondary to persistent mural thrombus. He is now status post an aortobiiliac bypass
with excision of endograft 06/17/24
S/p Aortic biiliac bypass, excision of endograft
06/17/24
History of AAA s/p EVAR, Cook Zenith endoprosthesis 11/01/21
with mural thrombus, occlusion, progressive claudication for past year
800 cc blood loss intraoperative
Postoperative hemoglobin 13.2->10.9
Chronic pain syndrome
Regular oxycodone use as outpatient
Conditions present prior to admission
CAD
CHF
Former smoker, >40 years, quit 2015
HTN
HLD
Varicose veins
Plan/recommendations
At this time, patient appears to be comfortable
Primary complaint is abdominal discomfort but improved with NG tube drainage and Dilaudid therapy
Hemodynamic stable
Urine output data, creatinine stable at 0.9
Troponin negative
EKG unremarkable
Hemoglobin stable, but trending down 10.9. Patient received IV fluids overnight for urine output
NG tube output 525
Moving forward
Continue with vascular checks
Remains n.p.o., NG tube in place. No changes for now
Pulse intact
Abdominal incision intact, abdomen soft
pain control, CLIENT SERVICES REPRESENTATIVE. Encouraged to use. Only used 3 mL overnight
Will likely require initiation of oral oxycodone given chronic use as outpatient. Presently remains n.p.o.
Hemoglobin noted, 10.9
continue to follow. Suspect dilutional
Vascular following
Pressors weaned off
Troponin negative
Blood pressure trending up. Will increase Lopressor to 5 mg every 6 hours. Unable to take amlodipine at this time due to n.p.o.
IV fluids continue. Follow-up urine output
Follow electrolytes, stable
Continue DVT prophylaxis: Subcutaneous heparin
GI prophylaxis: Per vascular protocol, remains on Protonix
Reviewed with critical care nursing, respiratory care, pharmacy
Subjective Dataa
Subjective Data
Date of Service:
Date of Service: June 19, 2024
Subjective:
Patient had difficult night, complaining of abdominal discomfort, NG tube discomfort. Improved this morning following pain control. Apparently not requesting Dilaudid as much as he should be. Only received 3 mL overnight
Objective Data
Data Reviewed
Vital Signs / I&O / Oxygen:
Vital Signs
Temp Pulse Resp BP Pulse Ox
99.5 F 80 22 157/88 94
06/19/24 03:10 06/19/24 05:15 06/19/24 05:15 06/19/24 05:00 06/19/24 05:15
Intake and Output
06/18/24 06/19/24 06/20/24
06:59 06:59 06:59
Intake Total 2275 / 2425 4125 / 4225 100 / 100
Output Total 958 / 993 3380 / 3605 225 / 225
Balance 1317 / 1432 745 / 620 -125 / -125
SaO2 94
Nasal Cannula flow liters per 2
minute
Physical Exam
General: Comfortable and Other (Right IJ)
HEENT: Normocephalic and Anicteric
Cardiovascular: S1-S2, Regular Rhythm, Murmur (n), Rub (n), Peripheral Edema (n) and Other (Distal pulses intact, feet warm)
Respiratory: Wheeze (n), Crackles (n) and Rhonchi (n)
GI: Soft, Tender, NG Tube, Other and Other (Dressing in place)
Neurology: Awake, Alert and No Motor Deficits
Skin: Good Color, Cyanosis (n), Jaundice (n) and Rash (n)
Labs/Micro/Reports
Lab Data
06/19/24 04:51
06/19/24 04:51
[2024-06-19] MEDS: PROTONIX IV 40 MG IV (07:54)
[2024-06-19] MEDS: NSS (PRESERVATIVE FREE) 10 ML IV (07:55)
--- NOTE | 2024-06-19 08:00 | PTCARENOTE ---
Received patient. He is currently on MUTUEL MACHINE OPERATOR, ongoing every 4 hour vascular checks BLE, Patient with improved UO, He states that he did not sleep well last night and he does not feel well. Increased output via NGT to LCS with bile green drainage.
[2024-06-19] MEDS: LOPRESSOR 5 MG IV ×3 (11:53→23:51)
--- NOTE | 2024-06-19 12:00 | PTCARENOTE ---
No marked change in assessment. Patine has been able to rest this am as he states he did not sleep well last night. Peripheral assessment BLEs stable. He has been using the DISTRIBUTION SUPERVISOR after encouragement for pain control. Pope care and oral care provided.
NGT flushed and to LCS with clear bile drainage. Right IJ cordis discontinued by IV team. Site is clean and dry with guaze and tegaderm, no evidence of hematoma or bleeding.
--- NOTE | 2024-06-19 16:30 | PTCARENOTE ---
Report handoff to ONEL Biswas. Patient seated comfortably in chair, LE elevated. CABLE WAY OPERATOR in reach, call light in reach, tolerating Room air. No change in assessment.
--- NOTE | 2024-06-19 16:42 | PTCARENOTE ---
Received pt sitting up in the chair. He is awake and alert, conversive. Left FA#20g protective catheter with IVF w/Hydromorphone DIALS INSPECTOR. He was encouraged to use it when he told me he was ready to get nabil in bed. I informed him of the simran of care
regarding the benefits of ambulation, coughing and deep breathing, turning side to side in the bed for the prevention of and ileus, pneumonia, blood clots, bed sores and to improve mobility and decrease pain. Left wrist #18g protective catheter
flushed and patent. Good palpable peripheral pulses. +1 anasarca. Extremities warm with brisk capillary refill. Lungs CTA, Demonstrated using the IS properly to 1500ml's several times. He was encouraged to use it several times/hr while awake for the
prevention of pneumonia. He admitted he hasn't been using it. Hypoactive BSX4, left nare Cla[place]orne sump secured 69cm to low continuous wall suction. He is tolerating ice chips, secretions from SS predominantly clear with scant green bilious secretions.
Temperature sensing Pope catheter secured to his leg to gravity drain. Large amounts of jose urine. Midline abdominal incision with original postop surgical adhesive dressing with old drainage. He is using a bed pillow to spling his abdomen PRN.
Safe environment maintained. Will continue to monitor.
[2024-06-19] MEDS: DILAUDID PCA 30 IV (17:30)
--- NOTE | 2024-06-19 17:37 | PTCARENOTE ---
Hydromorphone PERINATAL BREASTFEEDING ASSISTANT bag hung. Safe environment maintained.
[2024-06-19 17:54] LABS: Glucose - Point of Care 84 mg/dl (70-99)
--- NOTE | 2024-06-19 20:00 | PTCARENOTE ---
Received pt from previous shift. Assessment performed, see flowsheets. Pt is AAOx3. Pain is 2/10 with the dilaudid STEEL WOOL MACHINE OPERATOR. Reminded pt to use the STEEL WOOL MACHINE OPERATOR button as needed for pain. NSR on heart monitor. q4h neurovascular checks to b/l LE. RA, lungs
diminished at the bases. R nare NGT at 69cm to 80mmHg continuous wall suction. Dark green output in canister. Abdomen is round and distended with hypoactive BS. Temp sensing jones catheter in place draining clear urine. Midline abdominal incision
with scant drainage on surgical adhesive dressing. L forearm PIV with NSS at 100mL/hr and dilaudid STEEL WOOL MACHINE OPERATOR. L wrist PIV capped. Accuchecks q6h. Will continue to monitor.
--- NOTE | 2024-06-19 21:00 | PTCARENOTE ---
Pt with core temp of 100.7. Provider aware and at bedside. IV Offirmiv administered, see MAR. CBC drawn and sent.
[2024-06-19 21:10] LABS: Hematocrit 31.1 % (39.0-52.0); Hemoglobin 10.8 g/dL (13.0-18.0); Mean Corp Hgb Conc. 34.7 g/dL (33.0-37.0); Mean Corpuscular Hgb 31.1 pg (27.0-31.0); Mean Corpuscular Volume 89.6 fL (80.0-94.0); Mean Platelet Volume 9.4 fL (7.4-10.4); Platelet Count 141 10^3/uL (130-400); Red Blood Cell Count 3.47 10^6/uL (4.70-6.10); Red Cell Dist. Width 13.7 % (11.5-14.5); White Blood Cell Count 7.1 10^3/uL (4.8-10.8)
[2024-06-20] VITALS (27 sets, daily range): BP systolic 124–184; BP diastolic 75–116; BMI 31.5
--- NOTE | 2024-06-20 | PTCARENOTE ---
Systems reviewed. No changes in assessment other than pt desatted to 88% while sleeping. 2L NC applied and SaO2 now 95%. Pt lying comfortably in bed with no new complaints at this time.
[2024-06-20 00:02] LABS: Glucose - Point of Care 104 mg/dl (70-99)
[2024-06-20] MEDS: NSS 1000 IV ×2 (02:23→17:25)
--- NOTE | 2024-06-20 04:00 | PTCARENOTE ---
Systems reviewed. No changes in assessment at this time. Pt resting comfortably in bed.
[2024-06-20] MEDS: LOPRESSOR 5 MG IV ×4 (05:36→23:15)
[2024-06-20 05:59] LABS: Hematocrit 29.9 % (39.0-52.0); Hemoglobin 10.4 g/dL (13.0-18.0); Mean Corp Hgb Conc. 34.8 g/dL (33.0-37.0); Mean Corpuscular Hgb 30.1 pg (27.0-31.0); Mean Corpuscular Volume 86.7 fL (80.0-94.0); Mean Platelet Volume 9.3 fL (7.4-10.4); Platelet Count 141 10^3/uL (130-400); Red Blood Cell Count 3.45 10^6/uL (4.70-6.10); Red Cell Dist. Width 13.7 % (11.5-14.5); White Blood Cell Count 6.6 10^3/uL (4.8-10.8)
[2024-06-20 06:24] LABS: Blood Urea Nitrogen 14 mg/dl (9-20); Calcium 8.4 mg/dl (8.4-10.2); Carbon Dioxide 26 mmol/L (22-30); Chloride 105 mmol/L (98-107); Estimated Creatinine Clearance > 125 ml/min; Glucose 101 mg/dl (70-99); Potassium 3.6 mmol/L (3.5-5.1); Sodium 140 mmol/L (135-145); eGFR > 60.00
--- NOTE | 2024-06-20 07:41 | W.PN.INTV ---
Today's Communication / Plan
Recommendations
NG tube clamp trial
Pain control
Continue Lopressor 5 mg every 6 hours
Changed to Lovenox DVT prophylaxis
Initiate oral antihypertensive therapy when able
Assessment
-
68-year-old male with history of EVAR October 2021, now with progressive claudication, increased symptoms over the last 10 months, found to have occluded bypass limb secondary to persistent mural thrombus. He is now status post an aortobiiliac bypass
with excision of endograft 06/17/24
S/p Aortic biiliac bypass, excision of endograft
06/17/24
History of AAA s/p EVAR, Cook Zenith endoprosthesis 11/01/21
with mural thrombus, occlusion, progressive claudication for past year
800 cc blood loss intraoperative
Postoperative hemoglobin 13.2->10.9
Chronic pain syndrome
Regular oxycodone use as outpatient
Conditions present prior to admission
CAD
CHF
Former smoker, >40 years, quit 2015
HTN
HLD
Varicose veins
Plan/recommendations
At this time, patient appears to be comfortable
Primary complaint is abdominal discomfort but improved with NG tube drainage and Dilaudid therapy
NG tube output 1300 cc over last 24 hours
Abdomen appears to be less distended, less tender on exam today
Urine output adequate, creatinine stable at 0.8
Hemoglobin trending down 10.9, but stabilized. Patient received IV fluids overnight for urine output
Moving forward
Appears to be slowly improving
NG tube clamping trial noted
Hopefully, can can discontinue and initiate oral
Pulse intact
Abdominal incision intact, abdomen soft
pain control, EVENT SET UP SPECIALIST. Encouraged to use.
Will likely require initiation of oral oxycodone given chronic use as outpatient. Presently remains n.p.o.
Hemoglobin noted, 10.9, stable
continue to follow. Suspect dilutional
Vascular following
Pressors weaned off
Troponin negative
Blood pressure noted. Tolerating Lopressor to 5 mg every 6 hours. Unable to take amlodipine at this time due to n.p.o.
Will resume oral medications once able
IV fluids continue. Follow-up urine output
Follow electrolytes, stable
Will replete potassium
Continue DVT prophylaxis: Subcutaneous heparin will transition to Lovenox
GI prophylaxis: Per vascular protocol, remains on Protonix
Reviewed with critical care nursing, respiratory care, pharmacy
Subjective Dataa
Subjective Data
Date of Service:
Date of Service: June 20, 2024
Subjective:
Patient is feeling well. Pain seems to be controlled. Abdominal discomfort is less. He is passing gas. Low-grade fever noted. Blood pressure better with Lopressor every 6
Objective Data
Data Reviewed
Vital Signs / I&O / Oxygen:
Vital Signs
Temp Pulse Resp BP Pulse Ox
100.1 F 65 6 149/80 97
06/20/24 07:00 06/20/24 06:18 06/20/24 06:18 06/20/24 06:18 06/20/24 07:00
Intake and Output
06/19/24 06/20/24 06/21/24
06:59 06:59 06:59
Intake Total 4125 / 4225 3160 / 3235 75 / 75
Output Total 3380 / 3605 3931 / 3976 45 / 45
Balance 745 / 620 -771 / -741
SaO2 97
Nasal Cannula flow liters per 2
minute
Physical Exam
General: Comfortable
HEENT: Normocephalic and Anicteric
Cardiovascular: S1-S2, Regular Rhythm, Murmur (n), Rub (n), Peripheral Edema (n) and Other (Distal pulses intact, feet warm)
Respiratory: Wheeze (n), Crackles (n) and Rhonchi (n)
GI: Soft, Distended (Mildly distended), Tender, NG Tube and Other (Dressing in place)
Neurology: Awake, Alert and No Motor Deficits
Skin: Good Color, Cyanosis (n), Jaundice (n) and Rash (n)
Labs/Micro/Reports
Lab Data
06/20/24 05:45
06/20/24 05:45
--- NOTE | 2024-06-20 07:43 | PTCARENOTE ---
Pt rec'd from mini shifter, AOx3, reports pain level tolerable with LOCOMOTIVE CRANE OPERATOR use. Plan discussed with Vascular team at bedside, pt reports +flatus, no nausea. Per Dr. Mcgarry, NGT with moderate amount output- we will perform NGT clamping trial today, remove
jones, enc OOB and increase of activity as tolerated. Pt verbalizes understanding and agreement. Continuing to monitor.
[2024-06-20] MEDS: HEPARIN 5000 UNITS SC (07:53)
--- NOTE | 2024-06-20 07:53 | W.PN.VS ---
Today's Communication / Plan
-
Patient seen and examined at bedside with Dr. Francisco Mcgarry, below plan reviewed with attending.
Assessment/Plan
-
Assessment: 68 year old male POD#3 Sztuz-pu-igpuz bypass with excision of endograft
Plan:
OOB to chair
Will attempt clamp trial of NG tube for 2 hours, will assess if NG tube is required following outputs after clamp trial
Continue ICU monitoring
Physical therapy
Encourage incentive spirometry
Continue AWNING ASSEMBLER
Discontinue Pope catheter
Subjective Data
-
Date of Service: June 20, 2024
Patient seen and examined at bedside, reports continued well-managed postoperative abdominal incisional pain. Reports passing small amounts of flatus. Denies nausea, vomiting, and chills.
Objective Data
-
Vital Signs
Temp Pulse Resp BP Pulse Ox
100.1 F 65 13 162/78 95
06/20/24 07:00 06/20/24 07:30 06/20/24 07:30 06/20/24 07:03 06/20/24 07:30
Intake and Output
06/19/24 06/20/24 06/21/24
06:59 06:59 06:59
Intake Total 4125 / 4225 3160 / 3235 75 / 75
Output Total 3380 / 3605 3931 / 3976 45 / 45
Balance 745 / 620 -771 / -741
Intake:
Oral fluids 360 / 360 120 / 120
IV fluids (Total) 2975 / 3075 1849 / 75
Nss 1,000 ml @ 75 mls/hr IV . 5 / 3075 1849 /
[id number] [facility] Rx#:[id number]
IV piggybacks 700 / 700 1100 / 1100
Amount instilled into GI Tube ( 90 / 90 90 / 90
Total)
[place] Sump
Output:
Gastrointestinal tube output ( 1324 625 / 625
Total)
[place] S[place] 1324 625 / 625
Urine, Pope 2054 330 / 3351 45 / 45
Lab Results
06/20/24 05:45
06/20/24 05:45
Calcium 8.4 mg/dl (8.4-10.2) 06/20/24 05:45
Magnesium 2.2 mg/dl (1.6-2.3) 06/19/24 04:51
Total Bilirubin 0.6 mg/dl (0.2-1.3) 06/17/24 16:37
Direct Bilirubin 0.2 mg/dl (0.0-0.4) 06/17/24 16:37
AST 24 U/L (17-59) 06/17/24 16:37
ALT 20 U/L (0-50) 06/17/24 16:37
Alkaline Phosphatase 76 U/L (38-126) 06/17/24 16:37
Total Protein 5.6 g/dl (6.3-8.2) L 06/17/24 16:37
Albumin 3.3 g/dl (3.5-5.0) L 06/17/24 16:37
Physical Exam
-
AAOx3, NAD resting in bed comfortably
No tachycardia
No dyspnea
NG tube with bilious output
ABD incision dressing CDI, ABD mildly distended but soft, tender at midline incision
BL feet warm, BL PT +2 palpable
Pope draining clear yellow urine
[2024-06-20] MEDS: NSS (PRESERVATIVE FREE) 10 ML IV (07:54)
[2024-06-20] MEDS: PROTONIX IV 40 MG IV (07:54)
--- NOTE | 2024-06-20 08:20 | PTCARENOTE ---
Assessments and meds as documented. Pedal pulses assessed with dopplar. Vascular check completed....left foot slightly cooler and more pale.Pt standby assist oob to chair at 0810. Weaned to room air, sat 95%. Lungs CTA. +Bowel sounds auscultated,
lower quadrants more hypoactive. Pope cath removed at this time, pt DTV 14:08. NGT flushed and clamped. Will unclamp at 10:00 and check return. Pt educated on importance of letting RNs know if he has any episodes of nausea. Pt verbalized
understanding. Call nolasco in hand, safe environment maintained.
--- NOTE | 2024-06-20 10:18 | PTCARENOTE ---
Addendum entered by Quincy Lee RN 06/20/24 10:42:
Pt with approx 50 mls of output over last 30 min, no complaints verbalized at this time. Reported to Destiney Kessler vascular VICE PRESIDENT OF CONTRACTS.
Original Note:
NGT returned to suction at 10:10, will monitor output for ~30 min and report to Vascular team. Pt with no complaints of nausea or pain at this time.
--- NOTE | 2024-06-20 11:30 | PTCARENOTE ---
Vascular SPEECH LANGUAGE PATHOLOGY ASSISTANT Destiney at bedside, NG tube removed at this time. Pt up and ambulating in room with RW and standby assist of RN, back to bed at 11:50 to rest. Pulling 1500 on IS, education reinforced. Pt verbalized understanding.
--- NOTE | 2024-06-20 11:45 | W.PN.UPDATE ---
Update Note
Progress Note Update
NG tube removed by this provider patient tolerated well, can have ice chips and small sips of water
[2024-06-20 11:58] LABS: Glucose - Point of Care 99 mg/dl (70-99)
[2024-06-20] MEDS: KCL 270 MEQ IV (12:09)
--- NOTE | 2024-06-20 14:21 | PTCARENOTE ---
Pt remains comfortable, back in bed since noon, sleeping when undisturbed. No changes in assessment. Neurovascular checks stable.
[2024-06-20] MEDS: LOVENOX 40 MG SC (17:25)
--- NOTE | 2024-06-20 17:40 | PTCARENOTE ---
Pt downgraded to tele, clear liquid diet ordered by Vascular CONSTRUCTION PLANT OPERATOR. Pt still comfortable, +flatus, pain controlled by CARDIOPULMONARY SPECIALIST. Vascular checks Q4 hours continue, left foot slightly cooler than right, Dopplar DP pulses -left weaker than right. Continuing to
monitor.
--- NOTE | 2024-06-20 20:37 | PTCARENOTE ---
Addendum entered by Kristine Maya RN 06/21/24 00:28:
@1999 abdominal dressing c/d/i
Addendum entered by Kristine Maya RN 06/20/24 21:43:
see neurovasc pulse checks, pt with doppler lower ext. pulses
Original Note:
pt received from previous rn- aox3, on room air, nsr on monitor. bp elevated- carmen calculus teacher aware new prn order. pt with mild abdominal pain on movement. pt with vending service technician pump and ivf infusing as per order. all safety precautions inplace, call nolasco within
reach. educated about plan of care for shift- verbalized understanding.
[2024-06-20 21:23] LABS: Glucose - Point of Care 120 mg/dl (70-99)
[2024-06-20] MEDS: NSS IV (23:14)
[2024-06-21] VITALS (15 sets, daily range): BP systolic 108–178; BP diastolic 81–100; PULSE 78; O2SAT 97; BMI 31.2
[2024-06-21] MEDS: APRESOLINE 10 MG IV (02:03)
[2024-06-21] MEDS: LOPRESSOR 5 MG IV (05:09)
[2024-06-21] MEDS: NSS 1000 IV (05:28)
[2024-06-21] MEDS: NSS IV (05:28)
[2024-06-21 05:40] LABS: Hematocrit 29.4 % (39.0-52.0); Hemoglobin 10.7 g/dL (13.0-18.0); Mean Corp Hgb Conc. 36.4 g/dL (33.0-37.0); Mean Corpuscular Hgb 30.4 pg (27.0-31.0); Mean Corpuscular Volume 83.5 fL (80.0-94.0); Mean Platelet Volume 9.3 fL (7.4-10.4); Platelet Count 166 10^3/uL (130-400); Red Blood Cell Count 3.52 10^6/uL (4.70-6.10); Red Cell Dist. Width 13.4 % (11.5-14.5); White Blood Cell Count 6.4 10^3/uL (4.8-10.8)
[2024-06-21 06:06] LABS: Blood Urea Nitrogen 13 mg/dl (9-20); Calcium 8.4 mg/dl (8.4-10.2); Carbon Dioxide 22 mmol/L (22-30); Chloride 105 mmol/L (98-107); Estimated Creatinine Clearance > 125 ml/min; Glucose 103 mg/dl (70-99); Potassium 3.5 mmol/L (3.5-5.1); Sodium 139 mmol/L (135-145); eGFR > 60.00
--- NOTE | 2024-06-21 07:30 | W.PN.INTV ---
Today's Communication / Plan
Recommendations
Tolerating oral regimen
Will likely require initiation of oral oxycodone. Presently written 5 mg every 4 hours as needed
Ambulate, PT/OT
DVT prophylaxis
Patient transferred to telemetry. We will sign off. Please call with questions
Assessment
-
68-year-old male with history of EVAR October 2021, now with progressive claudication, increased symptoms over the last 10 months, found to have occluded bypass limb secondary to persistent mural thrombus. He is now status post an aortobiiliac bypass
with excision of endograft 06/17/24
S/p Aortic biiliac bypass, excision of endograft
06/17/24
History of AAA s/p EVAR, Cook Zenith endoprosthesis 11/01/21
with mural thrombus, occlusion, progressive claudication for past year
800 cc blood loss intraoperative
Postoperative hemoglobin 13.2->10.9
Chronic pain syndrome
Regular oxycodone use as outpatient
Conditions present prior to admission
CAD
CHF
Former smoker, >40 years, quit 2015
HTN
HLD
Varicose veins
Plan/recommendations
At this time, patient appears to be comfortable
NG tube has been removed
Abdominal pain improved
Urine output adequate, creatinine stable at 0.7
Hemoglobin trending down 10.7, but stabilized.
Blood pressure improved
Moving forward
Appears to be slowly improving
Advance diet per surgery
Passing gas
Pulse intact
Abdominal incision intact, abdomen soft
pain control, COMMUNICATIONS PROGRAMMER. Encouraged to use.
Will likely require initiation of oral oxycodone given chronic use as outpatient. Presently remains n.p.o.
Hemoglobin noted, 10.7, stable
continue to follow. Suspect dilutional
Vascular following
Blood pressure seems to be improved
Outpatient antihypertensive regimen has been resumed
Electrolytes stable
Continue DVT prophylaxis: Lovenox
GI prophylaxis: Per vascular protocol, remains on Protonix
Patient transferred to telemetry. We will sign off. Please call with questions
Subjective Dataa
Subjective Data
Date of Service:
Date of Service: June 21, 2024
Subjective:
Patient continues to improve. Has mild abdominal pain. Tolerated some liquids yesterday p.m. without issues, denies nausea. NG tube removed.
Patient tolerated physical therapy yesterday
Objective Data
Data Reviewed
Vital Signs / I&O / Oxygen:
Vital Signs
Temp Pulse Resp BP Pulse Ox
98.5 F 62 27 147/89 96
06/21/24 03:25 06/21/24 06:00 06/21/24 06:00 06/21/24 06:00 06/21/24 06:00
Intake and Output
06/20/24 06/21/24 06/22/24
06:59 06:59 06:59
Intake Total 3160 / 3235 1245 / 1245
Output Total 3931 / 3976 2345 / 2345
Balance -771 / -741 -1100 / -1100
SaO2 96
Nasal Cannula flow liters per 2
minute
Physical Exam
General: Comfortable
HEENT: Normocephalic and Anicteric
Cardiovascular: S1-S2, Regular Rhythm, Murmur (n), Rub (n), Peripheral Edema (n) and Other (Per Doppler, left foot Doppler less so than right foot Doppler, feet warm)
Respiratory: Wheeze (n), Crackles (n) and Rhonchi (n)
GI: Soft, Distended (Mildly distended), Tender (Mild lower abdominal) and Other (Dressing in place)
Neurology: Awake, Alert and No Motor Deficits
Skin: Good Color, Cyanosis (n), Jaundice (n) and Rash (n)
Labs/Micro/Reports
Lab Data
06/21/24 05:15
06/21/24 05:15
[2024-06-21] MEDS: PROTONIX IV 40 MG IV (07:45)
[2024-06-21] MEDS: NSS (PRESERVATIVE FREE) 10 ML IV (07:46)
--- NOTE | 2024-06-21 08:29 | W.PN.VS ---
Today's Communication / Plan
-
Seen and assessed with Dr. Pope
Assessment/Plan
-
Assessment: 68 year old male POD#4 Ruheu-lr-mwobs bypass with excision of endograft
Plan:
Out of bed/ambulate
Physical therapy
Encourage incentive spirometry
Regular diet this morning
Switch CHEMICAL PACKAGER to p.o.
P.o. home meds start today
Possible discharge tomorrow/this weekend
Subjective Data
-
Date of Service: June 21, 2024
Patient seen at bedside this a.m. no events overnight. Patient resting comfortably. Clear liquid diet went well for dinner last night, no bloating, pain/discomfort. Patient is passing gas.
Objective Data
-
Vital Signs
Temp Pulse Resp BP Pulse Ox
98.5 F 62 27 147/89 96
06/21/24 03:25 06/21/24 06:00 06/21/24 06:00 06/21/24 06:00 06/21/24 06:00
Intake and Output
06/20/24 06/21/24 06/22/24
06:59 06:59 06:59
Intake Total 3160 / 3235 1245 / 1245
Output Total 3931 / 3976 2345 / 2345
Balance -771 / -741 -1100 / -1100
Intake:
Oral fluids 120 / 120 300 / 300
IV fluids (Total) 1849 / 675
Nss 1,000 ml @ 75 mls/hr IV . 1849 /
[id number] [facility] Rx#:[id number]
IV piggybacks 1100 / 1100 270 / 270
Amount instilled into GI Tube ( 90 / 90
Total)
[place] Sump 90 / 90
Output:
Gastrointestinal tube output ( 625 / 625 50 / 50
Total)
[place] Sump 50 / 50
Urine, Pope 3306 / 3351 295 / 295
Urine, Voided 1999
Lab Results
06/21/24 05:15
06/21/24 05:15
Calcium 8.4 mg/dl (8.4-10.2) 06/21/24 05:15
Magnesium 2.2 mg/dl (1.6-2.3) 06/19/24 04:51
Total Bilirubin 0.6 mg/dl (0.2-1.3) 06/17/24 16:37
Direct Bilirubin 0.2 mg/dl (0.0-0.4) 06/17/24 16:37
AST 24 U/L (17-59) 06/17/24 16:37
ALT 20 U/L (0-50) 06/17/24 16:37
Alkaline Phosphatase 76 U/L (38-126) 06/17/24 16:37
Total Protein 5.6 g/dl (6.3-8.2) L 06/17/24 16:37
Albumin 3.3 g/dl (3.5-5.0) L 06/17/24 16:37
Physical Exam
-
AAOx3, NAD resting in bed comfortably
No tachycardia
No dyspnea
ABD incision dressing CDI, ABD soft, only mild tenderness at midline incision
BL feet warm, BL PT +2 palpable
--- NOTE | 2024-06-21 09:07 | PTCARENOTE ---
report received, assessments per work list. patient status reviewed with vascular stylist assistant, orders received
[2024-06-21] MEDS: DILAUDID 2 MG PO ×3 (10:50→19:56)
[2024-06-21] MEDS: TOPROL XL 50 MG PO (11:25)
[2024-06-21] MEDS: ROXICODONE 5 MG PO (13:01)
--- NOTE | 2024-06-21 13:06 | PTCARENOTE ---
cook supervisor, fluids D/C. see prn medication administration. slept in am, oob to chair at noon. tolerating regular diet. poor appetite, but denies nausea. ambulated in hallway with PT. dyspneic with exertion. pulse oximeter checks>92. lungs clear with
basilar crackles. I/S encouraged. patient states he was experiencing dyspnea preoperatively. oob to chair. call nolasco in reach
--- NOTE | 2024-06-21 14:19 | PTCARENOTE ---
Patient received from ICU in bed; Patient on room air, oxygen saturation 98%; Patient states pain is moderate but tolerable; Patient denies nausea/vomiting at this time; Midline abdominal aquacell with scant amount of old drainage, area soft to
palpation, no ecchymosis noted; Bilateral pedal pulses weak to palpation, +2 with doppler; Patient denies numbness and/or tingling to extremities; digital performance analyst applied, normal sinus rhythm; Bed in lowest position, wheels locked; Call nolasco
within reach; Assessment ongoing
[2024-06-21] MEDS: LOVENOX 40 MG SC (17:10)
[2024-06-22] MEDS: TYLENOL 650 MG PO (02:14)
[2024-06-22 03:41] VITALS: BP 140/84
[2024-06-22 07:05] LABS: % Basophils 0.6 % (0-2); % Immature Granulocytes 0.5 % (0-0.5); % Lymphocytes 13.8 % (20.5-51.1); % Monocytes 10.1 % (1.7-9.3); Absolute Eosinophils 0.3 10^3/uL (0-0.7); Absolute Lymphocytes 0.9 10^3/uL (1.2-3.4); Absolute Monocytes 0.7 10^3/uL (0.1-0.6); Absolute Neutrophils 4.6 10^3/uL (1.4-6.5); Hematocrit 28.4 % (39.0-52.0); Mean Corp Hgb Conc. 35.2 g/dL (33.0-37.0); Mean Corpuscular Hgb 29.9 pg (27.0-31.0); Mean Corpuscular Volume 84.8 fL (80.0-94.0); Mean Platelet Volume 9.7 fL (7.4-10.4); Nucleated Red Blood Cells % 0 % (-); Platelet Count 185 10^3/uL (130-400); Red Blood Cell Count 3.35 10^6/uL (4.70-6.10); Red Cell Dist. Width 13.5 % (11.5-14.5); White Blood Cell Count 6.4 10^3/uL (4.8-10.8)
[2024-06-22 08:00] VITALS: BP 157/99
[2024-06-22] MEDS: PROTONIX 40 MG PO (08:09)
[2024-06-22] MEDS: TOPROL XL 50 MG PO (08:11)
[2024-06-22] MEDS: DILAUDID 2 MG PO ×4 (08:11→22:17)
[2024-06-22] MEDS: LEXAPRO 20 MG PO (08:12)
[2024-06-22] MEDS: NORVASC 10 MG PO (08:12)
[2024-06-22] MEDS: ASPIR LOW (ENTERIC COATED) 81 MG PO (08:12)
[2024-06-22] MEDS: CRESTOR 40 MG PO (08:12)
--- NOTE | 2024-06-22 08:27 | W.PN.VS ---
Today's Communication / Plan
-
See plan below for today 07-14.
Assessment/Plan
-
Assessment: 68 year old male POD#5 Zoggh-uo-nomve bypass with excision of endograft
Plan:
Out of bed/ambulate
Physical therapy
Encourage incentive spirometry
Chest x-ray this morning.
DuoNebs treatment.If continued wheezing will ask pulmonary to reconsult.
-
Total Time Spent with Patient (in minutes): 15
Subjective Data
-
Date of Service: June 22, 2024
Seen and evaluated. Patient noted some wheezing this morning and nursing noted as well. But patient does not note any shortness of breath or dyspnea per se. Tolerating p.o. diet.
Objective Data
-
Vital Signs
Temp Pulse Resp BP Pulse Ox
97.8 F 65 14 157/99 96
06/22/24 08:00 06/22/24 08:12 06/22/24 08:00 06/22/24 08:12 06/22/24 08:00
Intake and Output
06/21/24 06/22/24 06/23/24
06:59 06:59 05:59
Intake Total 1245 / 1320 2175 / 2175
Output Total 2345 / 2345 1100 / 1100
Balance -1100 / -1025 1075 / 1075
Intake:
Oral fluids 300 / 300 1800 / 1800
IV fluids (Total) 675 / 750 375 / 375
Nss 1,000 ml @ 75 mls/hr IV . 675 / 750 375 / 375
[id number] [facility] Rx#:[id number]
IV piggybacks 270 / 270
Output:
Gastrointestinal tube output ( 50 / 50
Total)
[place] Sump 50 / 50
Urine, Pope 295 / 295
Urine, Voided 1999 / 2000 1100 / 1100
Other:
Number of approximated SMALL 1
amounts of urine
Number of approximated MODERATE 2
amounts of urine
Lab Results
06/22/24 05:54
06/21/24 05:15
Calcium 8.4 mg/dl (8.4-10.2) 06/21/24 05:15
Magnesium 2.2 mg/dl (1.6-2.3) 06/19/24 04:51
Total Bilirubin 0.6 mg/dl (0.2-1.3) 06/17/24 16:37
Direct Bilirubin 0.2 mg/dl (0.0-0.4) 06/17/24 16:37
AST 24 U/L (17-59) 06/17/24 16:37
ALT 20 U/L (0-50) 06/17/24 16:37
Alkaline Phosphatase 76 U/L (38-126) 06/17/24 16:37
Total Protein 5.6 g/dl (6.3-8.2) L 06/17/24 16:37
Albumin 3.3 g/dl (3.5-5.0) L 06/17/24 16:37
Physical Exam
-
Afebrile.
Awake and alert.
Breathing is unlabored at rest. O2 saturation on room air is 97%. (Measured just now).
Abdomen soft, nondistended, appropriate incisional tenderness. Dressing clean dry and intact.
Feet warm with easily palpable PT pulses bilaterally.
[2024-06-22] MEDS: DUONEB 3 ML INH (08:39)
[2024-06-22 11:42] VITALS: BP 146/85
[2024-06-22 11:52] VITALS: O2SAT 97
[2024-06-22 15:57] VITALS: BP 150/82
[2024-06-22] MEDS: LOVENOX 40 MG SC (17:45)
[2024-06-22 23:05] VITALS: BP 172/93
[2024-06-23 01:09] VITALS: BP 133/64
[2024-06-23] MEDS: TYLENOL 650 MG PO ×2 (01:46→07:47)
[2024-06-23] MEDS: DILAUDID 2 MG PO ×2 (01:46→07:46)
[2024-06-23 06:35] LABS: % Basophils 0.7 % (0-2); % Eosinophils 4.3 % (0-6); % Immature Granulocytes 0.5 % (0-0.5); % Lymphocytes 14.5 % (20.5-51.1); % Monocytes 10.6 % (1.7-9.3); % Neutrophils 69.4 % (42.2-75.2); Absolute Eosinophils 0.3 10^3/uL (0-0.7); Absolute Lymphocytes 0.9 10^3/uL (1.2-3.4); Absolute Monocytes 0.6 10^3/uL (0.1-0.6); Absolute Neutrophils 4.1 10^3/uL (1.4-6.5); Hematocrit 28.5 % (39.0-52.0); Hemoglobin 10.1 g/dL (13.0-18.0); Mean Corp Hgb Conc. 35.4 g/dL (33.0-37.0); Mean Corpuscular Hgb 29.9 pg (27.0-31.0); Mean Corpuscular Volume 84.3 fL (80.0-94.0); Mean Platelet Volume 9.7 fL (7.4-10.4); Nucleated Red Blood Cells % 0 % (-); Platelet Count 187 10^3/uL (130-400); Red Blood Cell Count 3.38 10^6/uL (4.70-6.10); Red Cell Dist. Width 13.4 % (11.5-14.5); White Blood Cell Count 5.9 10^3/uL (4.8-10.8)
[2024-06-23 07:41] VITALS: BP 149/87
[2024-06-23] MEDS: NORVASC 10 MG PO (07:49)
[2024-06-23] MEDS: ASPIR LOW (ENTERIC COATED) 81 MG PO (07:49)
[2024-06-23] MEDS: CRESTOR 40 MG PO (07:49)
[2024-06-23] MEDS: TOPROL XL 50 MG PO (07:49)
[2024-06-23] MEDS: PROTONIX 40 MG PO (07:50)
[2024-06-23] MEDS: LEXAPRO 20 MG PO (07:50)
--- NOTE | 2024-06-23 09:24 | W.PN.VS ---
Today's Communication / Plan
-
See plan below for today 06/23/2024.
Assessment/Plan
-
Assessment: 68 year old male POD#6 Egvhi-px-mildj bypass with excision of endograft
Plan:
Overall doing well. No further wheezing episodes. Physical therapy cleared for discharge home. Discharge home today then.
-
Total Time Spent with Patient (in minutes): 10
Subjective Data
-
Date of Service: June 23, 2024
No specific complaints. Feels well. Tolerating diet. Ambulating well. Denied any right thigh claudication type symptoms when he ambulated with physical therapy.
Objective Data
-
Vital Signs
Temp Pulse Resp BP Pulse Ox
97.7 F 60 16 149/87 96
06/23/24 07:41 06/23/24 07:49 06/23/24 07:41 06/23/24 07:49 06/23/24 07:41
Intake and Output
06/22/24 06/23/24 06/24/24
07:59 06:59 06:59
Intake Total
Output Total
Balance
Intake:
Oral fluids
IV fluids (Total)
Nss 1,000 ml @ 75 mls/hr IV .
[id number] [facility] Rx#:[id number]
Output:
Urine, Voided
Other:
Number of approximated SMALL
amounts of urine
Number of approximated MODERATE
amounts of urine
Lab Results
06/23/24 05:50
06/21/24 05:15
Calcium 8.4 mg/dl (8.4-10.2) 06/21/24 05:15
Magnesium 2.2 mg/dl (1.6-2.3) 06/19/24 04:51
Total Bilirubin 0.6 mg/dl (0.2-1.3) 06/17/24 16:37
Direct Bilirubin 0.2 mg/dl (0.0-0.4) 06/17/24 16:37
AST 24 U/L (17-59) 06/17/24 16:37
ALT 20 U/L (0-50) 06/17/24 16:37
Alkaline Phosphatase 76 U/L (38-126) 06/17/24 16:37
Total Protein 5.6 g/dl (6.3-8.2) L 06/17/24 16:37
Albumin 3.3 g/dl (3.5-5.0) L 06/17/24 16:37
Physical Exam
-
Afebrile.
Awake and alert.
Abdomen soft, nondistended, nontender.
Incision is clean dry and intact.
Feet are warm with 2+ palpable PT pulses bilaterally.
Labs reviewed
--- NOTE | 2024-06-23 10:49 | CM ---
CM reviewed chart. notified CM that pt is medically stable for dc. Spoke with pt explained role and discussed anticipated dc plan/options. Reviewed PT radha/recs- pt declining home care at this time. IMM presented, explained and signed by pt @
approx [id number] and placed on chart. Family to transport at dc. aware of the above. Pt is clear to DC from a CM/SW standpoint.
== END 2024-06-23 10:53 | disposition home or self-care (01) | DRG 271 ==
LOC: 2 SOUTH 07:13
PROVIDERS: Nurse Practitioner; Nurse Practitioner Acute Care; Nurse Practitioner Primary Care; ADMITTING PHYSICIAN Surgery Vascular Surgery; CONSULT PHYSICIAN Internal Medicine Critical Care Medicine; FAMILY PHYSICIAN Family Medicine
PROC: 041 Lower Arteries, Bypass (ICD-10-PCS; 2024-06-18)
PROC: 04100JD Bypass Abdominal Aorta to Right External Iliac Artery with Synthetic Substitute, Open Approach (ICD-10-PCS; 2024-06-18)
PROC: 04PY0JZ Removal of Synthetic Substitute from Lower Artery, Open Approach (ICD-10-PCS; 2024-06-18)
DX: T82.898A Other specified complication of vascular prosthetic devices, implants and grafts, initial encounter (principal); I74.5 Embolism and thrombosis of iliac artery; K56.7 Ileus, unspecified; I71.40 Abdominal aortic aneurysm, without rupture, unspecified; Z87.891 Personal history of nicotine dependence; I25.10 Atherosclerotic heart disease of native coronary artery without angina pectoris; I50.9 Heart failure, unspecified; I11.0 Hypertensive heart disease with heart failure; E78.5 Hyperlipidemia, unspecified; I83.90 Asymptomatic varicose veins of unspecified lower extremity; I73.9 Peripheral vascular disease, unspecified; I51.3 Intracardiac thrombosis, not elsewhere classified; Z95.5 Presence of coronary angioplasty implant and graft; Y83.1 Surgical operation with implant of artificial internal device as the cause of abnormal reaction of the patient, or of later complication, without mention of misadventure at the time of the procedure
CPT/HCPCS: 88304; 35638; 36415; 71045; 71046; 80048; 80076; 82962; 83735; 84484; 85025; 85027; 85610; 85730; 86706; 86803; 86850; 86900; 86901; 86920; 87340; 87389; 93005; 94640; 97116; 97163; 97530

== ENCOUNTER → 2024-07-09 15:59 | Outpatient (REF) | payer MEDICARE, SELFPAY | LOC: RAD 15:59 | PROVIDERS: ATTENDING PHYSICIAN Registered Nurse; FAMILY PHYSICIAN Family Medicine | DX: I71.40 Abdominal aortic aneurysm, without rupture, unspecified (principal) | CPT/HCPCS: 74174; Q9967 ==

== ENCOUNTER → 2025-02-05 09:40 | Outpatient (REF) | payer MEDICARE, SELFPAY ==
[2025-02-05 10:55] LABS: Blood Urea Nitrogen 16 mg/dl (9-20); Calcium 9.3 mg/dl (8.4-10.2); Carbon Dioxide 24 mmol/L (22-30); Chloride 110 mmol/L (98-107); Glucose 116 mg/dl (70-99); Potassium 4.2 mmol/L (3.5-5.1); Sodium 141 mmol/L (135-145); eGFR > 60.00
== END ==
LOC: REG 09:40
PROVIDERS: ATTENDING PHYSICIAN Registered Nurse; FAMILY PHYSICIAN Family Medicine; REFERRING PHYSICIAN Internal Medicine
DX: I71.40 Abdominal aortic aneurysm, without rupture, unspecified (principal)
CPT/HCPCS: 36415; 80048

== ENCOUNTER → 2025-02-06 10:23 | Outpatient (REF) | payer MEDICARE, SELFPAY | LOC: RAD 10:23 | PROVIDERS: ATTENDING PHYSICIAN Surgery Vascular Surgery; FAMILY PHYSICIAN Family Medicine | DX: I71.40 Abdominal aortic aneurysm, without rupture, unspecified (principal) | CPT/HCPCS: 74174; Q9967 ==

== ENCOUNTER → 2025-04-23 10:36 | Outpatient (REF) | payer MEDICARE, SELFPAY | LOC: HWRAD 10:36 | PROVIDERS: ATTENDING PHYSICIAN Family Medicine; REFERRING PHYSICIAN Internal Medicine | DX: Z87.891 Personal history of nicotine dependence (principal) | CPT/HCPCS: 71271 ==

== ENCOUNTER → 2025-05-08 10:58 | Outpatient (REF) | payer MEDICARE, SELFPAY ==
[2025-05-08 11:51] LABS: Hematocrit 41.4 % (39.0-52.0); Hemoglobin 14.5 g/dL (13.0-18.0); Mean Corp Hgb Conc. 35.0 g/dL (33.0-37.0); Mean Corpuscular Volume 87.0 fL (80.0-94.0); Nucleated Red Blood Cells % 0 % (-); Platelet Count 211 10^3/uL (130-400); Red Cell Dist. Width 13.2 % (11.5-14.5)
[2025-05-08 12:33] LABS: ALT (SGPT) 18 U/L (0-50); AST (SGOT) 21 U/L (17-59); Albumin 4.5 g/dl (3.5-5.0); Alkaline Phosphatase 90 U/L (38-126); Blood Urea Nitrogen 16 mg/dl (9-20); Calcium 9.5 mg/dl (8.4-10.2); Carbon Dioxide 26 mmol/L (22-30); Chloride 104 mmol/L (98-107); Glucose 97 mg/dl (70-99); HDL Cholesterol 45 mg/dl; LDL Cholesterol, Calculated 36 mg/dl; Potassium 4.7 mmol/L (3.5-5.1); Sodium 137 mmol/L (135-145); Total Protein 7.1 g/dl (6.3-8.2); Very Low Density Lipoprotein 26 mg/dl (0-30); eGFR > 60.00
[2025-05-08 13:01] LABS: PSA, Total - Diagnostic 6.31 ng/ml (0.0-4.0)
== END ==
LOC: REG 10:58
PROVIDERS: ATTENDING PHYSICIAN Family Medicine; OTHER PHYSICIAN Internal Medicine
DX: R35.1 Nocturia (principal); E78.2 Mixed hyperlipidemia; I10 Essential (primary) hypertension
CPT/HCPCS: 36415; 80053; 80061; 84153; 85025

== ENCOUNTER → 2025-08-18 14:35 | Outpatient (REF) | payer MEDICARE, SELFPAY | LOC: HWRCS 14:35 | PROVIDERS: ATTENDING PHYSICIAN Internal Medicine; FAMILY PHYSICIAN Family Medicine | DX: I25.10 Atherosclerotic heart disease of native coronary artery without angina pectoris (principal); I25.5 Ischemic cardiomyopathy; I77.810 Thoracic aortic ectasia; I34.0 Nonrheumatic mitral (valve) insufficiency | CPT/HCPCS: 93306 ==

== ENCOUNTER → 2025-08-20 14:22 | Outpatient (REF) | payer MEDICARE, SELFPAY ==
[2025-08-20 15:51] LABS: Blood Urea Nitrogen 19 mg/dl (9-20); Calcium 9.3 mg/dl (8.4-10.2); Carbon Dioxide 27 mmol/L (22-30); Chloride 106 mmol/L (98-107); Glucose 103 mg/dl (70-99); Potassium 4.0 mmol/L (3.5-5.1); Sodium 139 mmol/L (135-145); eGFR > 60.00
== END ==
LOC: REG 14:22
PROVIDERS: ATTENDING PHYSICIAN Internal Medicine; FAMILY PHYSICIAN Family Medicine
DX: I25.10 Atherosclerotic heart disease of native coronary artery without angina pectoris (principal)
CPT/HCPCS: 36415; 80048